=== PATIENT | female | born 1970 | race Caucasian/White ===

== ENCOUNTER 2018-07-12 08:26 | Day surgery (SDC) | payer BC ==
[~2018-07-12 08:26] MED LIST: DESFLURANE 15 MIN
[2018-07-12] MEDS ORDERED: CEFAZOLIN 2 GM/50 ML (PMX) 50 ML IVPB (09:00)
[2018-07-12] MEDS: SOD CHLORIDE 0.9% 1,000 ML IV (09:53)
[2018-07-12] MEDS ORDERED: PROPOFOL 20 ML (09:55)
[2018-07-12] MEDS ORDERED: LIDOCAINE 2% (SDV) 5 ML INJ (09:55)
[2018-07-12] MEDS ORDERED: ROCURONIUM 50 MG INJ (09:55)
[2018-07-12] MEDS ORDERED: MIDAZOLAM 1 MG/ML 2 ML INJ (09:55)
[2018-07-12] MEDS ORDERED: DEXAMETHASONE 4 MG/ML 5 ML INJ ×2 (09:56→11:14)
[2018-07-12] MEDS ORDERED: ROPIVACAINE 0.5 % 30 ML VIAL (09:56)
[2018-07-12] MEDS ORDERED: GLYCOPYRROLATE 0.4 MG INJ ×3 (10:06→11:32)
[2018-07-12] MEDS ORDERED: NEOSTIGMINE 3 MG/3 ML SYRINGE ×2 (10:06→11:32)
[2018-07-12] MEDS ORDERED: SUGAMMADEX SODIUM 200 MG/2 ML VIAL IV (10:07)
[2018-07-12] MEDS ORDERED: BUPIVACAINE 0.25% (MPF) 30 ML INJ (10:36)
[2018-07-12] MEDS ORDERED: hydrALAzine 20 MG INJ IV (11:00)
[2018-07-12] MEDS ORDERED: MEPERIDINE 25 MG INJ IV (11:00)
[2018-07-12] MEDS ORDERED: LABETALOL HCL 20MG INJ IV (11:00)
[2018-07-12] MEDS ORDERED: ONDANSETRON 4 MG INJ IV (11:00)
[2018-07-12] MEDS ORDERED: HYDROmorphONE 1 MG/5 ML IV SYRINGE IV ×2 (11:00)
[2018-07-12] MEDS ORDERED: ONDANSETRON 4 MG INJ (11:14)
[2018-07-12] MEDS ORDERED: CEFAZOLIN 1 GM INJ (11:14)
[2018-07-12] MEDS: HYDROCODONE/APAP (5/325) TAB PO (12:47)
== END 2018-07-12 14:00 | disposition home or self-care (01) ==
LOC: SDS 08:26
DX: K43.0 Incisional hernia with obstruction, without gangrene (principal); I10 Essential (primary) hypertension; E66.9 Obesity, unspecified; Z68.35 Body mass index [BMI] 35.0-35.9, adult
CPT/HCPCS: 49655; 84703

== ENCOUNTER 2018-07-15 12:57 | Emergency (ER) | payer BC ==
[2018-07-15] MEDS ORDERED: SODIUM CHLORIDE 0.9% 1L BAG IV* (14:05)
[2018-07-15 14:13] LABS: ADD MAN DIFF? NO
[2018-07-15 14:17] LABS: BASOPHIL # 0.1 10^3/ul (0.0-0.1); BASOPHILS % 0.5 % (0.0-2.0); EOSINOPHILS # 0.6 10^3/ul (0.0-0.5); EOSINOPHILS % 6.6 % (0.0-7.0); HEMATOCRIT 40.4 % (37.0-47.0); HEMOGLOBIN 13.5 g/dl (12.0-16.0); LYMPHOCYTES # 2.1 10^3/ul (0.8-2.9); LYMPHOCYTES % 22.4 % (15.0-51.0); MEAN CORPUSCULAR HEMOGLOBIN 27.8 pg (29.0-33.0); MEAN CORPUSCULAR HGB CONC 33.4 g/dl (32.0-37.0); MEAN CORPUSCULAR VOLUME 83.1 fl (82.0-101.0); MEAN PLATELET VOLUME 9.4 fl (7.4-10.4); MONOCYTE # 0.9 10^3/ul (0.3-0.9); MONOCYTES % 10.1 % (0.0-11.0); NEUTROPHIL # 5.5 10^3/ul (1.6-7.5); PLATELET COUNT 327 10^3/UL (140-415); RED BLOOD COUNT 4.86 10^6/ul (4.20-5.40); RED CELL DISTRIBUTION WIDTH 18.6 % (11.5-14.5)
[2018-07-15 14:17] LABS: WHITE BLOOD COUNT 9.2 10^3/ul (4.8-10.8)
[2018-07-15 14:28] LABS: ADD UMIC NO; UR ASCORBIC ACID NEGATIVE (NEGATIVE); UR BILIRUBIN (Dip) NEGATIVE (NEGATIVE); UR BLOOD (Dip) NEGATIVE (NEGATIVE); UR CLARITY CLEAR (CLEAR); UR COLOR YELLOW (YELLOW); UR GLUCOSE (Dip) NEGATIVE (NEGATIVE); UR KETONES (Dip) NEGATIVE (NEGATIVE); UR LEUKOCYTE ESTERASE (Dip) NEGATIVE Leu/ul (NEGATIVE); UR NITRITE (Dip) NEGATIVE (NEGATIVE); UR SPECIFIC GRAVITY (Dip) 1.021 (1.003-1.030); UR TOTAL PROTEIN (Dip) NEGATIVE (NEGATIVE); UR UROBILINOGEN (Dip) NEGATIVE (NEGATIVE)
[2018-07-15 14:48] LABS: INR 0.89; PARTIAL THROMBOPLASTIN TIME 27.2 Sec (23.0-35.0); PROTIME 12.1 Sec (11.9-14.9); PT RATIO 0.9
[2018-07-15] MEDS: ONDANSETRON 4 MG INJ IV (15:02)
[2018-07-15] MEDS: morphine 4 MG/ML VIAL IV (15:03)
[2018-07-15] MEDS: NA PHOSPHATE/BIPHOS 133 ML ENEMA PR (15:05)
[2018-07-15 15:06] LABS: ALANINE AMINOTRANSFERASE 58 IU/L (13-69); ALBUMIN 4.2 g/dl (3.3-4.9); ALBUMIN/GLOBULIN RATIO 1.27; ALKALINE PHOSPHATASE 85 IU/L (42-121); ANION GAP 12 (5-13); ASPARTATE AMINO TRANSFERASE 35 IU/L (15-46); BILIRUBIN,INDIRECT 0.1 mg/dl (0-1.1); BILIRUBIN,TOTAL 0.1 mg/dl (0.2-1.3); BLOOD UREA NITROGEN 12 mg/dl (7-20); CALCIUM 9.6 mg/dl (8.4-10.2); CARBON DIOXIDE 23 mmol/L (21-31); CHLORIDE 103 mmol/L (97-110); CREATININE 0.53 mg/dl (0.44-1.00); Estimated GFR > 60 mL/min (>60); GLUCOSE 84 mg/dl (70-220); LIPASE 101 U/L (23-300); POTASSIUM 4.1 mmol/L (3.5-5.1); SODIUM 138 mmol/L (135-144); TOTAL PROTEIN 7.5 g/dl (6.1-8.1)
[2018-07-15 15:17] LABS: TROPONIN-I < 0.012 ng/ml (0.000-0.120)
== END 2018-07-15 17:24 | disposition home or self-care (01) ==
LOC: E/R 12:57
DX: K59.00 Constipation, unspecified (principal); R33.9 Retention of urine, unspecified; G89.18 Other acute postprocedural pain; I10 Essential (primary) hypertension; R10.9 Unspecified abdominal pain
CPT/HCPCS: 36415; 71045; 74176; 80053; 81003; 81025; 83605; 83690; 84484; 85025; 85610; 85730; 87040; 87086; 93005; 96374; 96375; 99285-25

== ENCOUNTER 2018-07-18 18:23 | Inpatient (IN) | payer BC ==
[2018-07-18 19:40] LABS: ADD MAN DIFF? NO
[2018-07-18 19:46] LABS: BASOPHILS % 0.2 % (0.0-2.0); EOSINOPHILS # 0.1 10^3/ul (0.0-0.5); EOSINOPHILS % 0.9 % (0.0-7.0); HEMATOCRIT 44.6 % (37.0-47.0); LYMPHOCYTES # 1.5 10^3/ul (0.8-2.9); LYMPHOCYTES % 12.3 % (15.0-51.0); MEAN CORPUSCULAR HEMOGLOBIN 27.7 pg (29.0-33.0); MEAN CORPUSCULAR HGB CONC 33.6 g/dl (32.0-37.0); MEAN CORPUSCULAR VOLUME 82.4 fl (82.0-101.0); MEAN PLATELET VOLUME 9.7 fl (7.4-10.4); MONOCYTE # 0.5 10^3/ul (0.3-0.9); MONOCYTES % 4.1 % (0.0-11.0); NEUTROPHIL # 9.9 10^3/ul (1.6-7.5); PLATELET COUNT 489 10^3/UL (140-415); RED BLOOD COUNT 5.41 10^6/ul (4.20-5.40); RED CELL DISTRIBUTION WIDTH 17.8 % (11.5-14.5)
[2018-07-18 19:46] LABS: WHITE BLOOD COUNT 12.1 10^3/ul (4.8-10.8)
[2018-07-18] MEDS: SOD CHLORIDE 0.9% 1,000 ML IV (19:46)
[2018-07-18] MEDS: KETOROLAC 15 MG INJ IV (19:46)
[2018-07-18 20:04] LABS: ALANINE AMINOTRANSFERASE 27 IU/L (13-69); ALBUMIN 4.5 g/dl (3.3-4.9); ALBUMIN/GLOBULIN RATIO 1.15; ALKALINE PHOSPHATASE 105 IU/L (42-121); ANION GAP 16 (5-13); ASPARTATE AMINO TRANSFERASE 26 IU/L (15-46); BILIRUBIN,INDIRECT 0.2 mg/dl (0-1.1); BILIRUBIN,TOTAL 0.2 mg/dl (0.2-1.3); BLOOD UREA NITROGEN 14 mg/dl (7-20); CALCIUM 10.1 mg/dl (8.4-10.2); CARBON DIOXIDE 23 mmol/L (21-31); CHLORIDE 101 mmol/L (97-110); CREATININE 0.76 mg/dl (0.44-1.00); Estimated GFR > 60 mL/min (>60); GLUCOSE 129 mg/dl (70-220); LIPASE 64 U/L (23-300); SODIUM 140 mmol/L (135-144); TOTAL PROTEIN 8.4 g/dl (6.1-8.1)
[2018-07-18 20:05] LABS: INR 0.86; PROTIME 11.8 Sec (11.9-14.9); PT RATIO 0.9
[2018-07-18 20:06] LABS: PARTIAL THROMBOPLASTIN TIME 27.5 Sec (23.0-35.0)
[2018-07-18] MEDS: DICYCLOMINE 10 MG CAP PO (20:55)
[2018-07-18] MEDS: morphine 2 MG INJ IV (23:11)
[2018-07-18] MEDS: BISACODYL 10 MG SUPP PR (23:11)
[2018-07-18] MEDS: ONDANSETRON 4 MG INJ IV (23:11)
[2018-07-18] MEDS: DEXTROSE 5%-0.45% NACL 1,000 ML IV (23:11)
[2018-07-18] MEDS: NACL 0.9% 3 ML SYG IV (23:32)
[2018-07-19 05:51] LABS: ADD MAN DIFF? NO
[2018-07-19 05:54] LABS: BASOPHILS % 0.2 % (0.0-2.0); EOSINOPHILS # 0.3 10^3/ul (0.0-0.5); EOSINOPHILS % 5.2 % (0.0-7.0); HEMATOCRIT 35.6 % (37.0-47.0); HEMOGLOBIN 11.9 g/dl (12.0-16.0); LYMPHOCYTES # 1.1 10^3/ul (0.8-2.9); LYMPHOCYTES % 17.9 % (15.0-51.0); MEAN CORPUSCULAR HEMOGLOBIN 28.1 pg (29.0-33.0); MEAN CORPUSCULAR HGB CONC 33.4 g/dl (32.0-37.0); MEAN PLATELET VOLUME 9.6 fl (7.4-10.4); MONOCYTE # 0.6 10^3/ul (0.3-0.9); MONOCYTES % 10.5 % (0.0-11.0); NEUTROPHIL # 3.9 10^3/ul (1.6-7.5); NEUTROPHILS % 65.9 % (39.0-77.0); PLATELET COUNT 346 10^3/UL (140-415); RED BLOOD COUNT 4.24 10^6/ul (4.20-5.40); RED CELL DISTRIBUTION WIDTH 18.3 % (11.5-14.5)
[2018-07-19 06:26] LABS: ALANINE AMINOTRANSFERASE 30 IU/L (13-69); ALBUMIN 3.3 g/dl (3.3-4.9); ALKALINE PHOSPHATASE 68 IU/L (42-121); ANION GAP 9 (5-13); ASPARTATE AMINO TRANSFERASE 22 IU/L (15-46); BILIRUBIN,INDIRECT 0.2 mg/dl (0-1.1); BILIRUBIN,TOTAL 0.2 mg/dl (0.2-1.3); BLOOD UREA NITROGEN 15 mg/dl (7-20); CALCIUM 8.3 mg/dl (8.4-10.2); CARBON DIOXIDE 26 mmol/L (21-31); CHLORIDE 103 mmol/L (97-110); CREATININE 0.66 mg/dl (0.44-1.00); Estimated GFR > 60 mL/min (>60); GLUCOSE 114 mg/dl (70-220); MAGNESIUM 2.1 mg/dl (1.7-2.5); PHOSPHORUS 3.4 mg/dl (2.5-4.9); POTASSIUM 3.5 mmol/L (3.5-5.1); SODIUM 138 mmol/L (135-144); TOTAL PROTEIN 6.3 g/dl (6.1-8.1)
[2018-07-19] MEDS: DEXTROSE 5%-0.45% NACL 1,000 ML IV ×3 (06:44→20:52)
[2018-07-19] MEDS: FAMOTIDINE 20 MG INJ IV ×2 (08:25→20:52)
[2018-07-19] MEDS: morphine 2 MG INJ IV ×3 (08:26→19:41)
[2018-07-19] MEDS: MINERAL OIL 133 ML ENEMA PR (12:42)
[2018-07-19] MEDS: SENNA/DOCUSATE NA (8.6MG/50MG) TAB PO ×2 (15:12→21:00)
[2018-07-19] MEDS: POLYETHYLENE GLYCOL 17 GM PACKET PO ×2 (15:12→21:00)
[2018-07-19] MEDS: ONDANSETRON 4 MG INJ IV (19:42)
[2018-07-19] MEDS: LORAZEPAM 2 MG INJ IV (20:52)
[2018-07-19] MEDS: morphine 4 MG/ML VIAL IV (21:29)
[2018-07-19] MEDS ORDERED: morphine 4 MG/ML VIAL IV (21:30)
[2018-07-20] MEDS: ONDANSETRON 4 MG INJ IV (05:11)
[2018-07-20] MEDS: KETOROLAC 30 MG INJ IV ×3 (05:11→21:25)
[2018-07-20] MEDS: DEXTROSE 5%-0.45% NACL 1,000 ML IV ×3 (05:12→14:29)
[2018-07-20 06:24] LABS: ADD MAN DIFF? NO; BASOPHILS % 0.5 % (0.0-2.0); EOSINOPHILS # 0.1 10^3/ul (0.0-0.5); HEMATOCRIT 37.4 % (37.0-47.0); HEMOGLOBIN 12.6 g/dl (12.0-16.0); LYMPHOCYTES # 0.8 10^3/ul (0.8-2.9); LYMPHOCYTES % 13.8 % (15.0-51.0); MEAN CORPUSCULAR HEMOGLOBIN 27.9 pg (29.0-33.0); MEAN CORPUSCULAR HGB CONC 33.7 g/dl (32.0-37.0); MEAN CORPUSCULAR VOLUME 82.9 fl (82.0-101.0); MEAN PLATELET VOLUME 9.3 fl (7.4-10.4); MONOCYTE # 0.7 10^3/ul (0.3-0.9); MONOCYTES % 13.1 % (0.0-11.0); NEUTROPHIL # 3.9 10^3/ul (1.6-7.5); NEUTROPHILS % 70.2 % (39.0-77.0); PLATELET COUNT 386 10^3/UL (140-415); RED BLOOD COUNT 4.51 10^6/ul (4.20-5.40); RED CELL DISTRIBUTION WIDTH 17.6 % (11.5-14.5)
[2018-07-20 06:24] LABS: WHITE BLOOD COUNT 5.5 10^3/ul (4.8-10.8)
[2018-07-20 06:53] LABS: ALANINE AMINOTRANSFERASE 20 IU/L (13-69); ALBUMIN 3.7 g/dl (3.3-4.9); ALBUMIN/GLOBULIN RATIO 1.19; ALKALINE PHOSPHATASE 72 IU/L (42-121); ANION GAP 11 (5-13); ASPARTATE AMINO TRANSFERASE 20 IU/L (15-46); BILIRUBIN,INDIRECT 0.2 mg/dl (0-1.1); BILIRUBIN,TOTAL 0.2 mg/dl (0.2-1.3); BLOOD UREA NITROGEN 10 mg/dl (7-20); CALCIUM 8.6 mg/dl (8.4-10.2); CARBON DIOXIDE 26 mmol/L (21-31); CHLORIDE 100 mmol/L (97-110); CREATININE 0.62 mg/dl (0.44-1.00); Estimated GFR > 60 mL/min (>60); GLUCOSE 121 mg/dl (70-220); PHOSPHORUS 3.6 mg/dl (2.5-4.9); POTASSIUM 3.6 mmol/L (3.5-5.1); SODIUM 137 mmol/L (135-144); TOTAL PROTEIN 6.8 g/dl (6.1-8.1)
[2018-07-20] MEDS: FAMOTIDINE 20 MG INJ IV ×2 (08:42→21:17)
[2018-07-20] MEDS: POLYETHYLENE GLYCOL 17 GM PACKET PO ×3 (08:42→09:01)
[2018-07-20] MEDS: PHENOL 1.4% SOLN 180 ML BTL MT (14:44)
[2018-07-20] MEDS: METOCLOPRAMIDE 10 MG INJ IV ×2 (17:53→23:57)
[2018-07-20] MEDS: SENNA/DOCUSATE NA (8.6MG/50MG) TAB PO (20:55)
[2018-07-21] MEDS: DULOXETINE 30 MG CAP DR PO ×2 (02:42→09:00)
[2018-07-21] MEDS: DEXTROSE 5%-0.45% NACL 1,000 ML IV ×2 (03:21→17:34)
[2018-07-21] MEDS: KETOROLAC 30 MG INJ IV ×3 (05:48→23:38)
[2018-07-21] MEDS: METOCLOPRAMIDE 10 MG INJ IV ×3 (05:48→21:31)
[2018-07-21 06:10] LABS: ADD MAN DIFF? NO
[2018-07-21 06:22] LABS: BASOPHILS % 0.5 % (0.0-2.0); EOSINOPHILS # 0.2 10^3/ul (0.0-0.5); HEMATOCRIT 36.8 % (37.0-47.0); HEMOGLOBIN 12.2 g/dl (12.0-16.0); LYMPHOCYTES # 1.4 10^3/ul (0.8-2.9); MEAN CORPUSCULAR HEMOGLOBIN 27.5 pg (29.0-33.0); MEAN CORPUSCULAR HGB CONC 33.2 g/dl (32.0-37.0); MEAN CORPUSCULAR VOLUME 82.9 fl (82.0-101.0); MEAN PLATELET VOLUME 9.3 fl (7.4-10.4); MONOCYTE # 0.8 10^3/ul (0.3-0.9); MONOCYTES % 12.9 % (0.0-11.0); NEUTROPHIL # 3.4 10^3/ul (1.6-7.5); NEUTROPHILS % 58.3 % (39.0-77.0); PLATELET COUNT 381 10^3/UL (140-415); RED BLOOD COUNT 4.44 10^6/ul (4.20-5.40); RED CELL DISTRIBUTION WIDTH 17.5 % (11.5-14.5)
[2018-07-21 06:22] LABS: WHITE BLOOD COUNT 5.8 10^3/ul (4.8-10.8)
[2018-07-21 06:42] LABS: LACTIC ACID 0.7 mmol/L (0.5-2.0)
[2018-07-21 06:45] LABS: MAGNESIUM 2.4 mg/dl (1.7-2.5)
[2018-07-21 06:45] LABS: PHOSPHORUS 3.7 mg/dl (2.5-4.9)
[2018-07-21 06:58] LABS: INR 0.98; PROTIME 13.1 Sec (11.9-14.9)
[2018-07-21 07:21] LABS: ALANINE AMINOTRANSFERASE 16 IU/L (13-69); ALBUMIN 3.5 g/dl (3.3-4.9); ALBUMIN/GLOBULIN RATIO 1.16; ALKALINE PHOSPHATASE 69 IU/L (42-121); ANION GAP 10 (5-13); ASPARTATE AMINO TRANSFERASE 27 IU/L (15-46); BLOOD UREA NITROGEN 8 mg/dl (7-20); CALCIUM 8.7 mg/dl (8.4-10.2); CARBON DIOXIDE 24 mmol/L (21-31); CHLORIDE 107 mmol/L (97-110); CREATININE 0.67 mg/dl (0.44-1.00); Estimated GFR > 60 mL/min (>60); GLUCOSE 99 mg/dl (70-220); POTASSIUM 3.2 mmol/L (3.5-5.1); SODIUM 141 mmol/L (135-144); TOTAL PROTEIN 6.5 g/dl (6.1-8.1)
[2018-07-21] MEDS: POLYETHYLENE GLYCOL 17 GM PACKET PO (09:00)
[2018-07-21] MEDS: FAMOTIDINE 20 MG INJ IV ×2 (09:41→21:29)
[2018-07-21] MEDS: ENOXAPARIN 40 MG/0.4 ML SYG SC (09:42)
[2018-07-21] MEDS: PHENOL 1.4% SOLN 180 ML BTL MT ×3 (10:52→23:37)
[2018-07-21] MEDS: POTASSIUM CHLORIDE 100 ML IVPB ×2 (13:03→15:28)
[2018-07-21] MEDS: NA PHOSPHATE/BIPHOS 133 ML ENEMA PR (13:03)
[2018-07-22] MEDS: LORAZEPAM 2 MG INJ IV (01:43)
[2018-07-22] MEDS: DEXTROSE 5%-0.45% NACL 1,000 ML IV ×2 (05:49→08:25)
[2018-07-22] MEDS: METOCLOPRAMIDE 10 MG INJ IV ×3 (05:49→21:29)
[2018-07-22] MEDS: KETOROLAC 30 MG INJ IV ×3 (05:49→18:15)
[2018-07-22 06:22] LABS: ADD MAN DIFF? NO
[2018-07-22 06:31] LABS: WHITE BLOOD COUNT 8.3 10^3/ul (4.8-10.8)
[2018-07-22 06:32] LABS: BASOPHILS % 0.4 % (0.0-2.0); EOSINOPHILS # 0.2 10^3/ul (0.0-0.5); EOSINOPHILS % 2.9 % (0.0-7.0); HEMATOCRIT 35.3 % (37.0-47.0); HEMOGLOBIN 11.9 g/dl (12.0-16.0); LYMPHOCYTES # 1.4 10^3/ul (0.8-2.9); LYMPHOCYTES % 16.3 % (15.0-51.0); MEAN CORPUSCULAR HEMOGLOBIN 27.7 pg (29.0-33.0); MEAN CORPUSCULAR HGB CONC 33.7 g/dl (32.0-37.0); MEAN CORPUSCULAR VOLUME 82.3 fl (82.0-101.0); MEAN PLATELET VOLUME 9.5 fl (7.4-10.4); MONOCYTES % 11.6 % (0.0-11.0); NEUTROPHIL # 5.7 10^3/ul (1.6-7.5); NEUTROPHILS % 68.4 % (39.0-77.0); PLATELET COUNT 404 10^3/UL (140-415); RED BLOOD COUNT 4.29 10^6/ul (4.20-5.40); RED CELL DISTRIBUTION WIDTH 17.3 % (11.5-14.5)
[2018-07-22 07:03] LABS: SODIUM 140 mmol/L (135-144)
[2018-07-22 07:04] LABS: ALANINE AMINOTRANSFERASE 24 IU/L (13-69); ALBUMIN 3.5 g/dl (3.3-4.9); ALBUMIN/GLOBULIN RATIO 1.09; ALKALINE PHOSPHATASE 72 IU/L (42-121); ANION GAP 13 (5-13); ASPARTATE AMINO TRANSFERASE 23 IU/L (15-46); BILIRUBIN,INDIRECT 0.1 mg/dl (0-1.1); BILIRUBIN,TOTAL 0.1 mg/dl (0.2-1.3); BLOOD UREA NITROGEN 9 mg/dl (7-20); CALCIUM 8.7 mg/dl (8.4-10.2); CARBON DIOXIDE 25 mmol/L (21-31); CHLORIDE 102 mmol/L (97-110); CREATININE 0.73 mg/dl (0.44-1.00); Estimated GFR > 60 mL/min (>60); GLUCOSE 102 mg/dl (70-220); TOTAL PROTEIN 6.7 g/dl (6.1-8.1)
[2018-07-22 07:26] LABS: MAGNESIUM 2.2 mg/dl (1.7-2.5)
[2018-07-22 07:26] LABS: PHOSPHORUS 4.4 mg/dl (2.5-4.9)
[2018-07-22] MEDS: FAMOTIDINE 20 MG INJ IV ×2 (08:26→21:29)
[2018-07-22] MEDS: ENOXAPARIN 40 MG/0.4 ML SYG SC (08:27)
[2018-07-22] MEDS ORDERED: DIATR MEGLU/DIATRIZOATE SODIUM 120 ML BTL (12:49)
[2018-07-22] MEDS: POTASSIUM CHLORIDE 100 ML IVPB (13:00)
[2018-07-22] MEDS ORDERED: ACETAMINOPHEN 1000MG/100ML IV 100 ML IVPB (18:30)
[2018-07-22] MEDS: traZODone 50 MG TAB PO (23:10)
[2018-07-23] MEDS: DEXTROSE 5%-0.45% NACL 1,000 ML IV (01:23)
[2018-07-23] MEDS: KETOROLAC 30 MG INJ IV ×4 (01:23→17:54)
[2018-07-23] MEDS: METOCLOPRAMIDE 10 MG INJ IV ×3 (06:05→21:16)
[2018-07-23 06:09] LABS: ADD MAN DIFF? NO
[2018-07-23 06:13] LABS: BASOPHILS % 0.4 % (0.0-2.0); EOSINOPHILS # 0.2 10^3/ul (0.0-0.5); EOSINOPHILS % 3.6 % (0.0-7.0); HEMOGLOBIN 11.6 g/dl (12.0-16.0); LYMPHOCYTES # 1.2 10^3/ul (0.8-2.9); LYMPHOCYTES % 17.9 % (15.0-51.0); MEAN CORPUSCULAR HEMOGLOBIN 27.6 pg (29.0-33.0); MEAN CORPUSCULAR HGB CONC 33.1 g/dl (32.0-37.0); MEAN CORPUSCULAR VOLUME 83.3 fl (82.0-101.0); MEAN PLATELET VOLUME 9.4 fl (7.4-10.4); MONOCYTE # 0.8 10^3/ul (0.3-0.9); MONOCYTES % 11.4 % (0.0-11.0); NEUTROPHIL # 4.5 10^3/ul (1.6-7.5); NEUTROPHILS % 66.3 % (39.0-77.0); PLATELET COUNT 416 10^3/UL (140-415); RED CELL DISTRIBUTION WIDTH 17.1 % (11.5-14.5)
[2018-07-23 06:13] LABS: WHITE BLOOD COUNT 6.8 10^3/ul (4.8-10.8)
[2018-07-23 06:46] LABS: CHOL/HDL RATIO 4.2 RATIO; CHOLESTEROL 192 mg/dl (100-200); HDL CHOLESTEROL 45 mg/dl (34-88); LDL CHOLESTEROL,CALCULATED 124 mg/dl; MAGNESIUM 2.2 mg/dl (1.7-2.5); TRIGLYCERIDES 117 mg/dl (0-149)
[2018-07-23 06:46] LABS: PHOSPHORUS 4.9 mg/dl (2.5-4.9)
[2018-07-23 07:09] LABS: ALANINE AMINOTRANSFERASE 20 IU/L (13-69); ALBUMIN 3.6 g/dl (3.3-4.9); ALBUMIN/GLOBULIN RATIO 1.16; ALKALINE PHOSPHATASE 80 IU/L (42-121); ANION GAP 12 (5-13); ASPARTATE AMINO TRANSFERASE 24 IU/L (15-46); BILIRUBIN,INDIRECT 0.2 mg/dl (0-1.1); BILIRUBIN,TOTAL 0.2 mg/dl (0.2-1.3); BLOOD UREA NITROGEN 11 mg/dl (7-20); CALCIUM 8.8 mg/dl (8.4-10.2); CARBON DIOXIDE 24 mmol/L (21-31); CHLORIDE 104 mmol/L (97-110); CREATININE 0.75 mg/dl (0.44-1.00); Estimated GFR > 60 mL/min (>60); GLUCOSE 102 mg/dl (70-220); SODIUM 140 mmol/L (135-144); TOTAL PROTEIN 6.7 g/dl (6.1-8.1)
[2018-07-23 07:14] LABS: POTASSIUM 2.7 mmol/L (3.5-5.1)
[2018-07-23 08:43] LABS: HEMOGLOBIN A1C 5.3 % (0-5.9)
[2018-07-23] MEDS: FAMOTIDINE 20 MG INJ IV (09:08)
[2018-07-23] MEDS: ENOXAPARIN 40 MG/0.4 ML SYG SC (09:21)
[2018-07-23] MEDS: POTASSIUM CHLORIDE (SR) 20 MEQ TAB PO ×2 (11:05→20:41)
[2018-07-23] MEDS: POTASSIUM CHLORIDE 100 ML IVPB (11:13)
[2018-07-23] MEDS: DULOXETINE 30 MG CAP DR PO (12:32)
[2018-07-23] MEDS: POTASSIUM CHLORIDE 40 MEQ in SOD CHLORIDE 0.45% 1,000 ML IV (15:03)
[2018-07-23 16:55] LABS: POTASSIUM 3.5 mmol/L (3.5-5.1)
[2018-07-23] MEDS: FAMOTIDINE 20 MG TAB PO (20:41)
[2018-07-24] MEDS: KETOROLAC 30 MG INJ IV ×3 (00:15→12:00)
[2018-07-24] MEDS: ZOLPIDEM 5 MG TAB PO (01:33)
[2018-07-24] MEDS: POTASSIUM CHLORIDE 40 MEQ in SOD CHLORIDE 0.45% 1,000 ML IV (01:33)
[2018-07-24] MEDS: METOCLOPRAMIDE 10 MG INJ IV ×3 (06:00→21:46)
[2018-07-24] MEDS: SOD CHLORIDE 0.45% 1,000 ML IV ×4 (06:58→23:24)
[2018-07-24 07:03] LABS: ANION GAP 7 (5-13); BLOOD UREA NITROGEN 8 mg/dl (7-20); CALCIUM 8.9 mg/dl (8.4-10.2); CARBON DIOXIDE 21 mmol/L (21-31); CHLORIDE 111 mmol/L (97-110); CREATININE 0.71 mg/dl (0.44-1.00); Estimated GFR > 60 mL/min (>60); GLUCOSE 84 mg/dl (70-220); MAGNESIUM 2.1 mg/dl (1.7-2.5); POTASSIUM 4.2 mmol/L (3.5-5.1); SODIUM 139 mmol/L (135-144)
[2018-07-24 07:03] LABS: PHOSPHORUS 3.6 mg/dl (2.5-4.9)
[2018-07-24] MEDS: POTASSIUM CHLORIDE (SR) 20 MEQ TAB PO ×2 (08:22→21:31)
[2018-07-24] MEDS: FAMOTIDINE 20 MG TAB PO ×2 (08:22→21:31)
[2018-07-24] MEDS: DULOXETINE 30 MG CAP DR PO (08:22)
[2018-07-24] MEDS: LOSARTAN 50 MG TAB PO (08:23)
[2018-07-24] MEDS: ENOXAPARIN 40 MG/0.4 ML SYG SC (08:24)
[2018-07-24] MEDS: traZODone 50 MG TAB PO (22:02)
[2018-07-24] MEDS: hydrALAzine 20 MG INJ IV (22:15)
[2018-07-25] MEDS: LORAZEPAM 0.5 MG TAB PO (00:11)
[2018-07-25] MEDS: METOCLOPRAMIDE 10 MG INJ IV ×3 (05:09→21:25)
[2018-07-25 05:28] LABS: ADD MAN DIFF? NO
[2018-07-25 05:32] LABS: WHITE BLOOD COUNT 6.7 10^3/ul (4.8-10.8)
[2018-07-25 05:32] LABS: BASOPHILS % 0.4 % (0.0-2.0); EOSINOPHILS # 0.4 10^3/ul (0.0-0.5); EOSINOPHILS % 6.3 % (0.0-7.0); HEMATOCRIT 34.9 % (37.0-47.0); HEMOGLOBIN 11.3 g/dl (12.0-16.0); LYMPHOCYTES # 1.3 10^3/ul (0.8-2.9); LYMPHOCYTES % 18.7 % (15.0-51.0); MEAN CORPUSCULAR HEMOGLOBIN 27.6 pg (29.0-33.0); MEAN CORPUSCULAR HGB CONC 32.4 g/dl (32.0-37.0); MEAN CORPUSCULAR VOLUME 85.3 fl (82.0-101.0); MEAN PLATELET VOLUME 9.4 fl (7.4-10.4); MONOCYTE # 0.6 10^3/ul (0.3-0.9); MONOCYTES % 9.4 % (0.0-11.0); NEUTROPHIL # 4.3 10^3/ul (1.6-7.5); NEUTROPHILS % 64.3 % (39.0-77.0); PLATELET COUNT 429 10^3/UL (140-415); RED BLOOD COUNT 4.09 10^6/ul (4.20-5.40); RED CELL DISTRIBUTION WIDTH 17.1 % (11.5-14.5)
[2018-07-25 05:50] LABS: PHOSPHORUS 4.4 mg/dl (2.5-4.9)
[2018-07-25 05:53] LABS: ANION GAP 6 (5-13); BLOOD UREA NITROGEN 4 mg/dl (7-20); CALCIUM 8.9 mg/dl (8.4-10.2); CARBON DIOXIDE 23 mmol/L (21-31); CHLORIDE 111 mmol/L (97-110); CREATININE 0.66 mg/dl (0.44-1.00); Estimated GFR > 60 mL/min (>60); GLUCOSE 83 mg/dl (70-220); SODIUM 140 mmol/L (135-144)
[2018-07-25] MEDS: DULOXETINE 30 MG CAP DR PO (09:08)
[2018-07-25] MEDS: LOSARTAN 50 MG TAB PO (09:09)
[2018-07-25] MEDS: POTASSIUM CHLORIDE (SR) 20 MEQ TAB PO ×2 (09:09→21:25)
[2018-07-25] MEDS: FAMOTIDINE 20 MG TAB PO ×2 (09:09→21:25)
[2018-07-25] MEDS: ENOXAPARIN 40 MG/0.4 ML SYG SC (09:10)
[2018-07-25] MEDS: hydrALAzine 20 MG INJ IV (21:25)
[2018-07-25] MEDS: SOD CHLORIDE 0.45% 1,000 ML IV (23:00)
[2018-07-26] MEDS: LORAZEPAM 2 MG INJ IV (00:26)
[2018-07-26] MEDS: METOCLOPRAMIDE 10 MG INJ IV ×2 (05:30→14:00)
[2018-07-26] MEDS: SOD CHLORIDE 0.45% 1,000 ML IV (05:34)
[2018-07-26 06:08] LABS: MAGNESIUM 1.9 mg/dl (1.7-2.5)
[2018-07-26 06:08] LABS: PHOSPHORUS 5.2 mg/dl (2.5-4.9)
[2018-07-26 06:13] LABS: ANION GAP 11 (5-13); BLOOD UREA NITROGEN 10 mg/dl (7-20); CALCIUM 9.2 mg/dl (8.4-10.2); CARBON DIOXIDE 26 mmol/L (21-31); CHLORIDE 104 mmol/L (97-110); CREATININE 0.76 mg/dl (0.44-1.00); Estimated GFR > 60 mL/min (>60); GLUCOSE 96 mg/dl (70-220); SODIUM 141 mmol/L (135-144)
[2018-07-26] MEDS: POTASSIUM CHLORIDE (SR) 20 MEQ TAB PO (09:21)
[2018-07-26] MEDS: FAMOTIDINE 20 MG TAB PO (09:21)
[2018-07-26] MEDS: DULOXETINE 30 MG CAP DR PO (09:21)
[2018-07-26] MEDS: LOSARTAN 50 MG TAB PO (09:22)
[2018-07-26] MEDS: ENOXAPARIN 40 MG/0.4 ML SYG SC (09:23)
[2018-07-26] MEDS ORDERED: POLYETHYLENE GLYCOL 17 GM PACKET PO (21:00)
[2018-07-26] MEDS ORDERED: SENNA/DOCUSATE NA (8.6MG/50MG) TAB PO (21:00)
== END 2018-07-26 16:30 | disposition home or self-care (01) | DRG 390 ==
LOC: TEL 07-23 09:49 → E/R 18:23 → 2NE 07-19 22:51 → 6WM 07-23 12:05 → PP2 07-24 18:42 → 2NE 20:18
DX: K56.7 Ileus, unspecified (principal); I10 Essential (primary) hypertension; Z98.890 Other specified postprocedural states; E88.81 Metabolic syndrome and other insulin resistance; N39.3 Stress incontinence (female) (male); F32.9 Major depressive disorder, single episode, unspecified; E87.6 Hypokalemia; E66.9 Obesity, unspecified; Z68.34 Body mass index [BMI] 34.0-34.9, adult
CPT/HCPCS: 36415; 71045; 74018; 74176; 74250; 80048; 80053; 80061; 83036; 83605; 83690; 83735; 84100; 84132; 84703; 85025; 85610; 85730; 96361; 96374; 99285-25